=== PATIENT | female | born 1970 | race African-American/Black ===

== ENCOUNTER 2021-02-18 18:31 | Emergency (ER) | payer BC ==
[2021-02-18 19:45] LABS: #Basophils 0.1 thou/uL (0.0-0.2); #Eosinphils 0.1 thou/uL (0.0-0.7); #Lymphocytes 5.6 thou/uL (1.20-3.40); #Monocytes 0.7 thou/uL (0.11-0.59); #Neutrophils 6.6 thou/uL (1.40-6.50); %Basophils 0.5 % (0.0-1.0); %Eosinophils 0.5 % (0.0-10.0); %Lymphocytes 42.9 % (21.0-51.0); %Monocytes 5.3 % (0.0-10.0); %Neutrophils 50.8 % (42.0-75.0); Hemoglobin 15.6 g/dL (12.0-16.0); Mean Corpuscular HGB CONC 31.6 g/dL (32.0-36.0); Mean Corpuscular Hemoglobin 29.5 pg (27.0-31.0); Mean Corpuscular Volume 93.3 fL (78.0-98.0); Mean Platelet Volume 7.7 fL (7.4-10.4); Platelet Count 338 thou/uL (130-400); Red Blood Cell (RBC) Count 5.29 mill/uL (4.20-5.40)
[2021-02-18 19:54] LABS: INR-International Normal Ratio 0.9
[2021-02-18] MEDS ORDERED: Dexamethasone 10 MG/ML VIAL ONE (19:59)
[2021-02-18 20:03] LABS: ALT (SGPT) 26 U/L (8-55); AST (SGOT) 17 U/L (5-34); Albumin 4.5 g/dL (3.5-5.0); Alkaline Phosphatase 101 U/L (40-110); Anion Gap 15 mmol/L (10-20); BUN (Urea Nitrogen) 12 mg/dL (9.8-20.1); Bilirubin, Total 0.6 mg/dL (0.2-1.2); Calc. Creatinine Clearance 0 mL/min (70-130); Calcium 9.1 mg/dL (7.8-10.44); Carbon Dioxide 27 mmol/L (22-29); Chloride 100 mmol/L (98-107); Glucose 263 mg/dL (70-105); Potassium 3.8 mmol/L (3.5-5.1); Protein, Total 8.5 g/dL (6.0-8.3); Sodium 138 mmol/L (136-145)
== END 2021-02-18 18:50 | disposition short-term general hospital (02) ==
LOC: BURERS 18:31
DX: G93.5 Compression of brain (principal); G93.89 Other specified disorders of brain; I10 Essential (primary) hypertension; E03.9 Hypothyroidism, unspecified; E78.5 Hyperlipidemia, unspecified; E04.9 Nontoxic goiter, unspecified; R29.700 NIHSS score 0
CPT/HCPCS: 70450; 80053; 85025; 85610; 93005; 96374; J1100